=== PATIENT | male | born 1990 | race Caucasian/White ===

== ENCOUNTER → 2020-04-09 | Outpatient (CLI) | payer OTHER ==
--- NOTE | 2020-04-09 16:33 | RAD ---
NECK SOFT TISSUE Clinical Indication: Reason: LUMP LT NECK / Spl. Instructions: / History: Comparison: None. TECHNIQUE: Real-time ultrasound imaging of the soft tissues of the neck is performed. Findings: In the left neck area of interest there is a lymph node measuring 1.3 x 0.5 x 1 cm. There is no appreciable cortical thinning. A fatty hilum is maintained. Feeding vessel to the hilum is seen. The right neck is imaged for comparison an is unremarkable. IMPRESSION: There is a benign lymph node in the left neck at the area of palpable concern. Electronically signed by: Samuel Paige MD (04/09/2020 4:30 PM) [facility]
== END ==
LOC: US 13:51
PROVIDERS: ATTEND Preventive Medicine Occupational Medicine
DX: R22.1 Localized swelling, mass and lump, neck (principal)
CPT/HCPCS: 76536